=== PATIENT | male | born 1960 | race Caucasian/White ===

== ENCOUNTER 2023-11-19 10:06 | Emergency (ER) | payer OTHER, SELFPAY ==
--- NOTE | ~2023-11-19 | US_ITS ---
EXAMINATION:US venous doppler LE RT INDICATION:Right lower extremity venous Doppler TECHNIQUE: Multiple grayscale, color flow and Doppler images of the right lower extremity deep venous systems were obtained and reviewed. COMPARISON:No prior studies for comparison. FINDINGS: The common femoral, superficial femoral and popliteal veins demonstrate normal respiratory variation, augmentation and compressibility. Color flow is also seen within the posterior tibial, pe roneal, greater saphenous and profunda veins. IMPRESSION: 1: No lower extremity deep venous thrombosis. Reviewed, dictated and finalized at location B.
[2023-11-19 10:16] VITALS: BP 130/109; PULSE 80; RESP 18; TEMP 36.9; O2SAT 97
--- NOTE | 2023-11-19 10:46 | ED.EXTPRO ---
HPI - Extremity Problem General Chief complaint: Extremity Problem,Nontraumatic Stated complaint: RLE swelling Time Seen by Provider: 11/19/23 10:26 Source: patient Mode of arrival: ambulatory Limitations: no limitations History of Present Illness HPI Narrative: This is a 63-year-old male that presents to the emergency department for right lower extremity edema. Reports about 10 days ago he noted his right lower leg was itchy, he thought maybe he had been bitten by a bug. Over the last several days he has noted the right lower extremity has gotten increasingly swollen. Reports pain to the lower leg. Hematuria urgent care was prompted to be seen in the ER for further evaluation. Denies fevers, chest pain, or shortness of breath. Related Data Home Medications Medication Instructions Recorded Confirmed diltiazem HCl 240 mg capsule,24 240 mg PO DAILY 03/22/22 10/03/23 hr,extended release lisinopril 5 mg tablet 5 mg PO DAILY 03/22/22 10/03/23 rivaroxaban 20 mg tablet (Xarelto) 20 mg PO DAILY 03/22/22 10/03/23 pravastatin 20 mg tablet 20 mg PO DAILY 10/02/23 10/03/23 Allergies Allergy/AdvReac Type Severity Reaction Status Date / Time codeine Allergy Intermediate Rash Verified 11/19/23 10:27 Review of Systems Review of Systems: CONSTITUTIONAL: Denies fever CARDIOVASCULAR: Reports edema. Denies chest pain RESPIRATORY: Denies dyspnea. SKIN: Reports itching. All systems reviewed & are unremarkable except as noted in HPI and below PMFSH Past Medical History Medical History Afib Hypertension Type 2 diabetes mellitus Surgical History Surgical History History of ankle surgery History of knee replacement Family History Family History Father Lung cancer Cerebrovascular accident Mother Cancer ovarian Social History Social History Smoking packs per day: 1 Smoking cigarettes per day: 20.0 Years smoked: 15 Smoking pack-years: 15.00 Smoking status: Former smoker Tobacco type: cigarettes Smoking end date: 03/10/02 Alcohol intake: current Alcohol use details: social drinking (beer) Substance use: unknown Lack of Transportation: No Lack of Food: Never True Current Housing: I Have Housing Concerned About Future Housing: No Difficulty Paying Gas/Electric Bills: No Difficulty Paying for Meds: No Currently Unemployed: No Education: High School Diploma/GED Difficulty w/ Childcare or Family Care: No Exam Narrative: GENERAL: Well-appearing, well-nourished, and in no acute distress. HEAD: Normocephalic, atraumatic. EYES: EOMI. CHEST: Clear to auscultation. No respiratory distress. No wheezes rales or rhonchi HEART: Regular rate and rhythm. No murmur heard. Normal peripheral pulses. EXTREMITIES: Normal range of motion. 1+ pitting edema to the right lower leg. Normal DP pulses. Mild erythema over the right lower leg anteriorly SKIN: Warm, dry, no rash. NEURO: No focal deficits. Alert and oriented x3. PSYCH: Normal mood and affect Course Course Emergency Course: Patient updated on workup and agrees with plan of care Vital Signs Vital signs: Vital Signs Temperature 98.4 F 11/19/23 10:16 Pulse Rate 80 11/19/23 10:16 Respiratory Rate 18 11/19/23 10:16 Blood Pressure 130/109 H 11/19/23 10:16 Pulse Oximetry 97 11/19/23 10:16 Oxygen Delivery Room Air 11/19/23 10:16 Temperature 98.4 F 11/19/23 10:16 Pulse Rate 80 11/19/23 10:16 Respiratory Rate 18 11/19/23 10:16 Blood Pressure 130/109 H 11/19/23 10:16 Pulse Oximetry 97 11/19/23 10:16 Oxygen Delivery Room Air 11/19/23 10:16 MDM - Extremity (Nontraumatic) MDM Narrative Medical decision making narrative: Patient presents to the em
[2023-11-19 11:39] LABS: Basophils Absolute Auto 0.1 K/mm3 (0.0-0.1); Eosinophils Absolute Auto 0.2 K/mm3 (0-0.3); Hematocrit 42.9 % (42.0-52.0); Immature Granulocyte Absolute 0.02 K/mm3 (0.00-0.031); Immature Granulocyte Percent A 0.3 % (0-0.5); Lymphocytes Absolute Auto 1.71 K/mm3 (0.9-3.2); Lymphocytes Percent Auto 24.8 % (18.3-44.2); Mean Corpuscular HGB Conc 32.6 g/dl (32-36); Mean Corpuscular Hemoglobin 28.1 pg (26-34); Mean Corpuscular Volume 86.1 fl (80-100); Mean Platelet Volume 8.9 fl (7.4-10.4); Monocytes Absolute Auto 0.8 K/mm3 (0.1-0.6); Monocytes Percent Auto 12.2 % (2.6-8.5); Neutrophils Absolute Auto 4.1 K/mm3 (1.3-6.7); Neutrophils Percent Auto 58.7 % (45.5-73.1); Platelet Count Result 225 k/mm3 (150-375); Red Blood Count 4.98 M/mm3 (4.6-6.20); Red Cell Distribution Width 14.8 % (11.5-14.5); White Blood Count 6.9 K/mm3 (4.5-10.0)
[2023-11-19 11:45] LABS: INR 2.4; Prothrombin Time 26.3 Seconds (11.1-14.7)
[2023-11-19 11:46] LABS: Partial Thromboplastin Time 58.9 Seconds (22.3-36.8)
[2023-11-19 11:47] LABS: Anion Gap 8 mmol/L (4-12); Blood Urea Nitrogen 16 mg/dL (9-20); CRP 1.9 mg/dL (<1.0); Calcium 9.3 mg/dL (8.4-10.2); Carbon Dioxide 27 mmol/L (22-30); Chloride 104 mmol/L (98-107); Estimated CRCL calculation 114 ml/min; Estimated Glomerular Filt Rate > 60; Glucose 100 mg/dL (65-110); Potassium 3.9 mmol/L (3.4-5.0); Sodium 139 mmol/L (137-145)
[2023-11-19 12:33] VITALS: BP 127/76; PULSE 56; RESP 16; TEMP 36.1; O2SAT 98
[2023-11-19 13:06] LABS: Erythrocyte Sedimentation Rate 17 mm/hr (0-20)
== END 2023-11-19 12:37 | disposition home or self-care (01) ==
PROVIDERS: Emergency Provider Physician Assistant; PCP Physician Assistant
DX: L03.115 Cellulitis of right lower limb (principal); S80.861A Insect bite (nonvenomous), right lower leg, initial encounter; I48.91 Unspecified atrial fibrillation; I10 Essential (primary) hypertension; E11.9 Type 2 diabetes mellitus without complications; Z96.659 Presence of unspecified artificial knee joint; Z87.891 Personal history of nicotine dependence; Z79.01 Long term (current) use of anticoagulants; Z79.84 Long term (current) use of oral hypoglycemic drugs; Z79.899 Other long term (current) drug therapy; W57.XXXA Bitten or stung by nonvenomous insect and other nonvenomous arthropods, initial encounter
CPT/HCPCS: 36415; 80048; 85025; 85610; 85652; 85730; 86140; 93971; 99284

== ENCOUNTER 2023-11-20 13:17 | Outpatient (CLI) | payer OTHER, SELFPAY ==
--- NOTE | 2023-11-20 14:15 | NEURO_ITS ---
Impression: # Complains of increasing nocturnal paresthesia of hands. # Abnormal Needle/EMG exam of bilateral abductor pollicis brevis muscles,with severe Bilateral carpal tunnel syndrome. Nerve Conduction Studies Anti Sensory Summary Table Stim Site NR Peak (ms) P-T Amp (?V) Site1 Site2 Delta-P (ms) Dist (cm) Aaron (m/s) Left Median Anti Sensory (2-3nd Digit) Wrist 4.9 35.4 Wrist 2-3nd Digit 4.9 14.0 29 Wrist 4.8 27.4 Wrist 2-3nd Digit 4.9 14.0 29 Right Median Anti Sensory (2-3nd Digit) Wrist 8.6 9.0 Wrist 2-3nd Digit 8.6 14.0 16 Wrist 7.5 9.7 Wrist 2-3nd Digit 8.6 14.0 16 Left Radial Anti Sensory (Base 1st Digit) Wrist 1.7 27.2 Wrist Base 1st Digit 1.7 0.0 Right Radial Anti Sensory (Base 1st Digit) Wrist 2.0 10.2 Wrist Base 1st Digit 2.0 0.0 Left Ulnar Anti Sensory (5th Digit) Wrist 2.3 13.8 Wrist 5th Digit 2.3 14.0 61 Right Ulnar Anti Sensory (5th Digit) Wrist 2.2 18.5 Wrist 5th Digit 2.2 14.0 64 Motor Summary Table Stim Site NR Onset (ms) O-P Amp (mV) Site1 Site2 Delta-0 (ms) Dist (cm) Aaron (m/s) Left Median Motor (Abd Poll Brev) Wrist 7.6 1.3 Elbow Wrist 4.5 28.0 62 Elbow 12.1 1.1 Right Median Motor (Abd Poll Brev) Wrist 7.0 2.8 Elbow Wrist 4.4 25.0 57 Elbow 11.4 2.7 Left Ulnar Motor (Abd Dig Minimi) Wrist 2.3 6.1 A Elbow Wrist 4.9 30.0 61 A Elbow 7.2 4.5 Right Ulnar Motor (Abd Dig Minimi) Wrist 2.4 4.3 A Elbow Wrist 4.9 29.0 59 A Elbow 7.3 4.0 F Wave Studies NR F-Lat (ms) L-R F-Lat (ms) Left Median (Mrkrs) (Abd Poll Brev) 29.18 0.12 Right Median (Mrkrs) (Abd Poll Brev) 29.30 0.12 Left Ulnar (Mrkrs) (Abd Dig Min) 29.14 0.64 Right Ulnar (Mrkrs) (Abd Dig Min) 28.51 0.64 EMG Side Muscle Nerve Root Ins Act Fibs Amp Dur Recrt Comment Right 1stDorInt Ulnar C8-T1 Nml Nml Nml Nml Nml Right Ext Indicis Radial (Post Int) C7-8 Nml Nml Nml Nml Nml Right Ext Digitorum Radial (Post Int) C7-8 Nml Nml Nml Nml Nml Right BrachioRad Radial C5-6 Nml Nml Nml Nml Nml Right PronatorTeres Median C6-7 Nml Nml Nml Nml Nml Right Abd Poll Brev Median C8-T1 Nml Nml Nml >12ms +1 Right ABD Dig Min Ulnar C8-T1 Nml Nml Nml Nml Nml Left 1stDorInt Ulnar C8-T1 Nml Nml Nml Nml Nml Left Ext Indicis Radial (Post Int) C7-8 Nml Nml Nml Nml Nml Left Ext Digitorum Radial (Post Int) C7-8 Nml Nml Nml Nml Nml Left BrachioRad Radial C5-6 Nml Nml Nml Nml Nml Left PronatorTeres Median C6-7 Nml Nml Nml Nml Nml Left Abd Poll Brev Median C8-T1 Nml Nml Nml >12ms +1 Left ABD Dig Min Ulnar C8-T1 Nml Nml Nml Nml Nml MTDD
== END 2023-11-20 13:18 | disposition home or self-care (01) ==
PROVIDERS: PCP Nurse Practitioner; Visit Provider Physician Assistant
DX: R20.0 Anesthesia of skin (principal); R20.2 Paresthesia of skin; R94.131 Abnormal electromyogram [EMG]
CPT/HCPCS: 95886; 95911

== ENCOUNTER 2023-12-26 07:36 | Outpatient (CLI) | payer OTHER, SELFPAY ==
--- NOTE | ~2023-12-26 | XR_ITS ---
XR abdomen/kub 1V Ordering provider: Bala Patten DO History: . R31.9 - Hematuria, unspecified, low back pain . Comparison: None. FINDINGS: BOWEL: Nonobstructive bowel gas pattern. ORGANOMEGALY: None. SIGNIFICANT PATHOLOGIC CALCIFICATIONS: None. OTHER: No free air is seen under the diaphragm. IMPRESSION: NO ACUTE ABDOMINAL FINDINGS. Reviewed, dictated and finalized at location A.
== END 2023-12-26 07:37 | disposition home or self-care (01) ==
PROVIDERS: PCP Nurse Practitioner; Visit Provider Internal Medicine
DX: R31.9 Hematuria, unspecified (principal)
CPT/HCPCS: 74018